=== PATIENT | female | born 1990 | race Caucasian/White ===

== ENCOUNTER 2017-04-02 09:40 | Outpatient (CLI) | payer BC ==
[~2017-04-02] VITALS: Ht 188 cm; Wt 79.8 kg
[2017-04-17] MEDS ORDERED: MOTRIN-DPS800 MG PO (11:21)
[2017-04-17] MEDS ORDERED: COLACE-DPS100 MG PO (11:21)
[2017-04-17] MEDS ORDERED: PRENATAL VIT1 TAB PO (11:21)
[2017-04-17] MEDS ORDERED: TYLENOL EXTRA500 M1 PO (11:21)
[2017-04-17] MEDS ORDERED: LAN-O-SOOTHE7 GM TP (11:22)
[2017-04-17] MEDS ORDERED: DERMOPLAST SPRA56 GM TP (11:22)
[2017-04-17] MEDS ORDERED: NIPPLECREAM TP (11:22)
[2017-04-17] MEDS ORDERED: TUCKS1 EACH TP (11:23)
== END 2017-04-02 13:00 | disposition home or self-care (01) ==
LOC: 2LDRP 09:40 → BC 09:40 → 2LDRP 13:00 → BC 04-28 08:00
DX: O46.93 Antepartum hemorrhage, unspecified, third trimester (principal); Z3A.36 36 weeks gestation of pregnancy

== ENCOUNTER 2017-04-04 13:35 | Outpatient (CLI) | payer BC ==
[2017-04-17] MEDS ORDERED: PRENATAL VIT1 TAB PO (11:21)
[2017-04-17] MEDS ORDERED: MOTRIN-DPS800 MG PO (11:21)
[2017-04-17] MEDS ORDERED: COLACE-DPS100 MG PO (11:21)
[2017-04-17] MEDS ORDERED: TYLENOL EXTRA500 M1 PO (11:21)
[2017-04-17] MEDS ORDERED: DERMOPLAST SPRA56 GM TP (11:22)
[2017-04-17] MEDS ORDERED: LAN-O-SOOTHE7 GM TP (11:22)
[2017-04-17] MEDS ORDERED: NIPPLECREAM TP (11:22)
[2017-04-17] MEDS ORDERED: TUCKS1 EACH TP (11:23)
== END 2017-04-04 15:50 | disposition home or self-care (01) ==
LOC: BC 13:35 → 2LDRP 13:35 → BC 15:50
DX: O36.8130 Decreased fetal movements, third trimester, not applicable or unspecified (principal); Z3A.35 35 weeks gestation of pregnancy

== ENCOUNTER 2017-04-14 03:35 | Inpatient (IN) | payer BC ==
--- NOTE | ~2017-04-14 | FD ---
ADMIT: 04/14/2017 RM/LOC: 201 [facility] MR#: [id number] [address] [address] NICHOLASCALLUM Jose [address] [place] [address] Final Diagnosis SEX: F AGE: 26 : 1990 ADMISSION DATE: 04/14/2017 DISCHARGE DATE: 04/16/2017 FINAL DIAGNOSIS: 1. Term intrauterine at 38 weeks. 2. Active labor. PROCEDURE: Spontaneous vaginal delivery. Nani Edwards MD/ hai JOB #: [id number] CC: Ruba Cameron MD, Attending Physician Ruba Cameron MD, Family Physician
--- NOTE | ~2017-04-14 | HP ---
ADMIT: 04/14/2017 RM/LOC: 201 [facility] MR#: [id number] [facility] [address] [place] [id number] CALLUM NICHOLAS [address] [place] [address] History and Physical SEX: F AGE: 26 : 1990 DATE OF SERVICE: HISTORY OF PRESENT ILLNESS: This is a 26-year-old, G2, P1-0-0-1, who presents to Labor and Delivery at 38 weeks and 0/7th days with complaints of regular painful contractions. Her has otherwise been uncomplicated. PAST MEDICAL HISTORY: None. PAST SURGICAL HISTORY: She has had arthroscopic knee surgery of her left knee in 2007. She has had an appendectomy in 1999. SOCIAL HISTORY: She is . Works on the farm. No tobacco, no alcohol, no drug use. OBSTETRICAL AND GYNECOLOGICAL HISTORY: She has had 1 prior spontaneous vaginal delivery at term, 8 pounds baby. FAMILY HISTORY: Noncontributory. MEDICATIONS: vitamin with iron. ALLERGIES: NO KNOWN DRUG ALLERGIES. OBSTETRICAL LABS: Diabetes 1 hour Glucola was 117. Hepatitis B surface antigen was negative. Blood type is A positive. Antibody screen was negative. HIV was negative. Rubella immune. RPR is nonreactive. Gonorrhea and chlamydia were negative. Quad screen was not performed. REVIEW OF SYSTEMS: The patient denies any fevers, chills, chest pain, shortness of breath, nausea, vomiting, diarrhea, or constipation. She notes good movement. No vaginal bleeding. She is having regular painful contractions for approximately last 5 hours. PHYSICAL EXAMINATION: VITAL SIGNS: Blood pressure is 121/73, pulse is 88, respirations 16, temperature is 99.3, and she is 98% on room air. heart tones show baseline of 135, moderate variability. Positive accelerations. No decelerations noted. Contractions approximately every 2-6 minutes although difficult to trace. GENERAL: Patient is uncomfortable with contractions but resting comfortably between. ADMIT: 04/14/2017 RM/LOC: 201 [facility] MR#: [id number] [id number] [address] CALLUM NICHOLAS [address] [place] [address] History and Physical SEX: F AGE: 26 : 1990 HEART: Regular rate and rhythm. No murmurs, rubs, or gallops. LUNGS: Clear to auscultation bilaterally. ABDOMEN: Gravid. EXTREMITIES: No edema. Cervical exam performed by RN shows her cervix to change from 2.5 cm, 80% effaced to 3.5 cm, 90% effaced over an hour. ASSESSMENT: This is a 26-year-old, 2, para 1-0-0-1, who is in active labor. 1. Admit to Labor and Delivery, anticipate spontaneous vaginal delivery. 2. The patient is GBS negative, prophylaxis is not indicated. 3. She is Rh positive and rubella immune. RhoGAM and MMR not indicated. Nani Edwards MD/ bj JOB #: [id number] CC: Ruba Cameron, Attending Physician Ruba Cameron, Family Physician
--- NOTE | 2017-04-15 13:33 | OR ---
ADMIT: 04/14/2017 RM/LOC: 201 [facility] MR#: [id number] [address] [address] CALLUM NICHOLAS Jose [address] [place] [address] Operative/Delivery Room Report SEX: F AGE: 26 : 1990 SURGERY DATE: 04/14/2017 SURGEON: Nani Edwards MD PREOPERATIVE DIAGNOSES: 1. Term intrauterine at 38 weeks 0/7th days. 2. Active labor. POSTOPERATIVE DIAGNOSES: 1. Term intrauterine at 38 weeks 0/7th days. 2. Active labor. PROCEDURE: Spontaneous vaginal delivery. FINDINGS: Viable female infant with scores of 9 and 9, and weight of 6 pounds, 0 ounce or 2721 g. Intact placenta with 3-vessel cord. A first- degree perineal laceration requiring repair. There was some evidence of about 25% placental abruption on the placenta bed, but no clinical concern for abruption prior to delivery. INDICATIONS FOR PROCEDURE: This is a 26-year-old, G2, P1-0-0-1, who presented to Labor and Delivery at 38 weeks with complaints of regular painful contractions and was found to have cervical change. She did have spontaneous rupture of membranes that have fore-bag which was also ruptured with clear fluid. She progressed normally through labor and was found to be complete. PROCEDURE: With maternal expulsive efforts, head was delivered over intact perineum. No nuchal cord was noted. The rest of the infant delivered. The infant was placed on maternal chest. Delayed cord clamping was employed x1 minute. The cord was then clamped and cut. Cord blood was collected. Placenta then delivered spontaneously intact. On examination of the cord, had three vessels, and there was an area on the maternal surface of about 25% of the placenta that was concerning for possible placental abruption, however, there was no clinical concern prior to delivery. There was a first-degree ADMIT: 04/14/2017 RM/LOC: 201 [facility] MR#: [id number] [address] [address] CALLUM NICHOLAS [facility] [place] [address] Operative/Delivery Room Report SEX: F AGE: 26 : 1990 perineal laceration that was bleeding. 1% lidocaine without epinephrine was injected into the area and the first degree was repaired using 3-0 Vicryl in a running locked fashion for hemostasis. Sponge and instrument counts were correct x2. COMPLICATIONS: None. ESTIMATED BLOOD LOSS: 250 mL. ANESTHESIA: None except for local for perineal repair. DISPOSITION: Mom stable in delivery room. Infant to nursery. Nani Edwards MD/ bj JOB #: [id number] CC: Ruba Cameron, Attending Physician Ruba Cameron, Family Physician
[2017-04-17] MEDS ORDERED: PRENATAL VIT1 TAB PO (11:21)
[2017-04-17] MEDS ORDERED: COLACE-DPS100 MG PO (11:21)
[2017-04-17] MEDS ORDERED: MOTRIN-DPS800 MG PO (11:21)
[2017-04-17] MEDS ORDERED: TYLENOL EXTRA500 M1 PO (11:21)
[2017-04-17] MEDS ORDERED: DERMOPLAST SPRA56 GM TP (11:22)
[2017-04-17] MEDS ORDERED: NIPPLECREAM TP (11:22)
[2017-04-17] MEDS ORDERED: LAN-O-SOOTHE7 GM TP (11:22)
[2017-04-17] MEDS ORDERED: TUCKS1 EACH TP (11:23)
== END 2017-04-16 13:30 | disposition home or self-care (01) | DRG 775 ==
LOC: BC 03:35 → 2LDRP 03:43 → BC 03:43 → 2LDRP 05:12 → BC 04-28 14:09
PROC: 0HQ9XZZ Repair Perineum Skin, External Approach (ICD-10-PCS; principal; 2017-04-14)
PROC: 10E0XZZ Delivery of Products of Conception, External Approach (ICD-10-PCS; principal; 2017-04-14)
DX: O70.0 First degree perineal laceration during delivery (principal)

== ENCOUNTER → 2017-05-15 | Outpatient (CLI) | payer BC ==
[~2017-05-15] MED LIST: COLACE-DPS100 MG PO; DERMOPLAST SPRA56 GM TP; LAN-O-SOOTHE7 GM TP; MOTRIN-DPS800 MG PO; NIPPLECREAM TP; PRENATAL VIT1 TAB PO; TUCKS1 EACH TP; TYLENOL EXTRA500 M1 PO
== END | disposition home or self-care (01) ==
LOC: RAD.S 17:00
DX: R10.9 Unspecified abdominal pain (principal); N20.0 Calculus of kidney